=== PATIENT | male | born 1980 | race Caucasian/White ===

== ENCOUNTER → 2018-02-11 | Day surgery (SDC) | payer BC ==
[~2018-02-11] MED LIST: BACITRACIN 50,000 UNIT VIAL ONE; BUPIVACAINE HCL 0.5% INJ 30 ML VIAL INJ ONE; CEFAZOLIN SOD 2 GM/D5W 50ML 50 ML IV ONE; DESFLURANE 240 ML BTL INH ONE; DEXAMETHASONE SOD PHOS INJ 4 MG/ML VIAL ONE; FENTANYL CITRATE/PF 100MCG/2 ML INJ ONE; GLYCOPYRROLATE INJ 1MG/ 5 ML SYR ONE; KETOROLAC TROMETHAMINE 30 MG/ML VIAL ONE; LIDOCAINE HCL 2% LOCAL INJ 5 ML SDV VIAL INJ ONE; LISINOPRIL10 MG PO; LOVENOX30 MG/0.3 SC; MIDAZOLAM HCL 2 MG/2 ML VIAL ONE; NEOSTIGMINE 5 MG/5ML SYR ONE; ONDANSETRON HCL INJ 2 MG/ML VIAL ONE; PROPOFOL IV EMULSION 10 MG/ML 20 ML VIAL ONE; ROCURONIUM BROMIDE 10 MG/ML 5ML VIAL ONE; TYLENOL WITH C1 EACH PO
--- NOTE | 2018-02-13 19:28 | Operative Report ---
DATE OF PROCEDURE: February 11, 2018 PREOPERATIVE DIAGNOSIS: Left lower extremity symptomatic hardware. POSTOPERATIVE DIAGNOSIS: Left lower extremity symptomatic hardware. PROCEDURE PERFORMED: Patient underwent a removal of a left tibial intramedullary nail. INDIGO MIXER: None. ANESTHESIA: General endotracheal intubation anesthesia. IV FLUIDS: Per the anesthesia record. DESCRIPTION OF OPERATIVE PROCEDURE: Mr. Duffy was taken to the operating room, placed in supine position on operating table. Following induction of general anesthesia, as well as endotracheal intubation, the patient's left lower extremity examined under anesthesia. He was found to have surgical scars consistent with a previous intramedullary nailing of tibia. He had full range of motion of his knee and ankle. The patient's lower extremity was prepped and draped in standard surgical fashion. The case was begun by removing the locking screws for the nail distally. Incisions were made over the head of each of those screws and the screws were removed without difficulty. Attention was then turned proximally. Incision was created overlying the patellar tendon. Full-thickness skin flaps were elevated both medially and laterally exposing the patellar tendon. A patellar button was then incised in its midline. The tip of the intramedullary nail was easily identified. Bony ingrowth was removed and the extraction device of the nail was attached through the incision site. The patient's proximal locking screw was removed and the nail was removed without difficulty. All wounds were then copiously irrigated. The patellar tendon was repaired. The remaining soft tissues were closed in a multilayer fashion. Sterile dressings were applied. The patient was awakened, taken to post anesthesia care unit in stable condition. Job#: [id number]
== END | disposition home or self-care (01) ==
LOC: OR 05:10
PROVIDERS: ATTEND Specialist
DX: Z47.2 Encounter for removal of internal fixation device (principal); I10 Essential (primary) hypertension; G47.33 Obstructive sleep apnea (adult) (pediatric)
CPT/HCPCS: 20680; 76001; 93005; J1100; J1885; J2001; J2250; J2405; J3490